=== PATIENT | female | born 1995 | race Two or more races ===

== ENCOUNTER 2020-03-14 20:28 | Emergency (ER) | payer MEDICAID ==
[~2020-03-14] VITALS: Ht 167.6 cm; Wt 102.1 kg
--- NOTE | 2020-03-14 20:51 | NUR ---
ED Nurse Note: Pt c/o swelling of left third finger x2 days. Reports pain is a 08/24. Pt is YANELIS x4. Addendum: 03/14/20 at 8 by ARSENIO ED Nurse Note: Pt has swelling, redness, and pain around the nail of third finger on left hand.
--- NOTE | 2020-03-14 21:23 | NUR ---
ED Nurse Note: Doctor in to see pt.
--- NOTE | 2020-03-14 21:27 | Emergency Room Report ---
History of Present Illness General Chief Complaint: Skin Rash/Abscess Source: Patient Present Illness HPI 25-year-old female here with right middle finger infection. Patient says that she bites her nails and over the past 2 days has been noticing swelling and pain at the tip of her right middle finger. Says it is swollen and "about to pop." Allergies: Coded Allergies: No Known Allergies (Unverified , 03/14/20) COVID-19 Screening Contact w/high risk pt: No Experienced COVID-19 symptoms?: No COVID-19 Testing performed SUPERVISOR PAPER TESTING: No COVID-19 Screening: Negative COVID-19 COVID-19 Testing Source: [facility] Patient History Now: No Nursing Documentation-[facility] Past Medical History: No Stated History Review of Systems All Other Systems: negative except mentioned in HPI Physical Exam Vital Signs Date Time Temp Pulse Resp B/P (MAP) Pulse Ox O2 Delivery O2 Flow Rate FiO2 03/14/20 20:43 98.4 85 20 134/85 (101) 98 Room Air Sp02 EP Interpretation: reviewed, normal General Appearance: no apparent distress, alert, non-toxic Head: normocephalic, atraumatic Eyes: bilateral eye normal inspection, bilateral eye PERRL ENT: hearing grossly normal, normal pharynx, no angioedema, normal voice Neck: full range of motion, supple/symm/no masses Respiratory: chest non-tender, lungs clear, normal breath sounds, speaking full sentences Cardiovascular #1: regular rate, rhythm, no edema Cardiovascular #2: 2+ carotid (R), 2+ carotid (L), 2+ radial (R), 2+ radial (L), 2+ dorsalis pedis (R), 2+ dorsalis pedis (L) Gastrointestinal: normal bowel sounds, non tender, soft, non-distended, no guarding, no rebound Rectal: deferred Genitourinary: normal inspection, no CVA tenderness Musculoskeletal: back normal, normal range of motion, gait/station normal, non-tender, other - Paronychia lateral aspect of the distal right middle finger Neurologic: alert, motor strength/tone normal, oriented x3, sensory intact, responsive, speech normal Psychiatric: judgement/insight normal, memory normal, mood/affect normal, no suicidal/homicidal ideation Lymphatic: no adenopathy Procedures Incision and Drainage Incision and Drainage : Consent: Verbal Site: Paronychia middle finger right hand Blade Size: 11 I & D Procedure: betadine prep Wound Location: other - Right middle finger Wound's Depth, Shape: superficial Anesthesia: 1% Lidocaine Splint Applied?: No Sling Applied?: No Patient Tolerated: Well Complications: None Medical Decision Making Diagnostic Impression: Primary Impression: Paronychia ER Course 25-year-old female here with right middle finger paronychia. Patient had incision and drainage performed as described above. Tolerated procedure well. Given prescription for doxycycline. Told to return with any worsening symptoms. Discharged in stable condition. Last Vital Signs Date Time Temp Pulse Resp B/P (MAP) Pulse Ox O2 Delivery O2 Flow Rate FiO2 03/14/20 20:43 98.4 85 20 134/85 (101) 98 Room Air Scripts Doxycycline Monohydrate* (DOXYCYCLINE MONOHYDRATE*) 100 Mg Capsule 100 MG ORAL Q12H, #14 CAP 0 Refills Prov: Les Neal M.D. 03/14/20 Les Neal M.D. Mar 14, 2020 21:27
[2020-03-14] MEDS ORDERED: DOXYCYCLINE MO100 MG ORAL (21:28)
[2020-03-14] MEDS ORDERED: Lidocaine 1% MPF 10mg/ml 5ml INJ ONE (21:30)
--- NOTE | 2020-03-14 21:58 | NUR ---
ED Nurse Note: I and D done by Dr. Neal. Gauze and tape applied to pt's finger. Pt tolerated procedure well.
[2020-03-14 22:04] VITALS: BP 120/65
== END 2020-03-14 22:00 | disposition home or self-care (01) ==
LOC: EMR 21:15
DX: L03.011 Cellulitis of right finger (principal)
CPT/HCPCS: 10060; Z7502; 99282

== ENCOUNTER 2020-04-18 20:02 | Emergency (ER) | payer MEDICAID ==
[~2020-04-18] VITALS: Ht 167.6 cm; Wt 108.9 kg
[~2020-04-18 20:02] MED LIST: DOXYCYCLINE MO100 MG ORAL
--- NOTE | 2020-04-18 22:27 | Emergency Room Report ---
History of Present Illness General Chief Complaint: Nausea Source: Patient Present Illness HPI The patient states that she is here for test. She states that she has had intermittent nausea, mood swings and headaches for about a week. She is mainly requesting a test. She states that she has not had a menses for the past 2 cycles. However, she admits that her menses is irregular. She did have an episode of diarrhea today but denies fever or chills. She denies cough or congestion. She denies chest pain or shortness of breath. She denies abdominal pain. She denies pelvic pain. She has no other complaints. Allergies: Coded Allergies: No Known Allergies (Unverified , 03/14/20) COVID-19 Screening Contact w/high risk pt: No Experienced COVID-19 symptoms?: No COVID-19 Testing performed VENDOR REPRESENTATIVES: No Patient History Past Medical History: none Past Surgical History: none Social History: Denies: smoking, alcohol use, drug use Last Menstrual Period: early february : 1 Para: 1 Reviewed Nursing Documentation: PMH: Agreed; PSxH: Agreed Nursing Documentation-PMH Past Medical History: No Stated History Review of Systems All Other Systems: negative except mentioned in HPI Physical Exam Vital Signs Date Time Temp Pulse Resp B/P (MAP) Pulse Ox O2 Delivery O2 Flow Rate FiO2 04/18/20 20:45 98.2 80 18 113/70 (84) 96 Room Air Sp02 EP Interpretation: reviewed, normal General Appearance: no apparent distress, alert, GCS 15, non-toxic Head: normocephalic, atraumatic Eyes: bilateral eye normal inspection ENT: hearing grossly normal, normal pharynx, no angioedema, normal voice Neck: normal inspection, full range of motion, supple/symm/no masses Respiratory: no respiratory distress, no retraction, no accessory muscle use, speaking full sentences Gastrointestinal: non tender, soft, non-distended, no guarding, no rebound Rectal: deferred Musculoskeletal: back normal, normal range of motion, gait/station normal, non- tender Neurologic: alert, motor strength/tone normal, oriented x3, sensory intact, responsive, speech normal Psychiatric: judgement/insight normal, memory normal, mood/affect normal, no suicidal/homicidal ideation Skin: no rash, normal color Medical Decision Making Diagnostic Impression: Primary Impression: Nausea/vomiting in ER Course The patient is requesting test for symptoms she associates with . Urinalysis and hCG were obtained which showed positive . The patient was instructed to start taking vitamins and to follow-up with her primary care physician or an OB to follow on with her . She is well-appearing and nontoxic with the symptoms normal for first trimester . There was some glucose in her urine so fingerstick blood sugar was obtained Laboratory Tests Test 04/18/20 21:30 Urine Color Yellow Urine Appearance Clear Urine pH 6 (4.5-8.0) Urine Specific [place] 1.025 (1.005-1.035) Urine Protein 1+ (NEGATIVE) H Urine Glucose (UA) 2+ (NEGATIVE) H Urine Ketones Negative (NEGATIVE) Urine Blood Negative (NEGATIVE) Urine Nitrite Negative (NEGATIVE) Urine Bilirubin Negative (NEGATIVE) Urine Urobilinogen Normal MG/DL (0.0-1.0) Urine Leukocyte Esterase 1+ (NEGATIVE) H Urine RBC Pending Urine WBC Pending Urine Squamous Epithelial Cells Pending Urine Bacteria Pending Urine HCG, Qualitative Positive (NEGATIVE) Last Vital Signs Date Time Temp Pulse Resp B/P (MAP) Pulse Ox O2 Delivery O2 Flow Rate FiO2 04/18/20 20:45 98.2 80 18 113/70 (84) 96 Room Air Referrals: NON PHYSICIAN (PCP) Renetta Sanz DO Apr 18, 2020 22:27
[2020-04-18 22:39] LABS: APPEARANCE,URINE CLEAR; BILIRUBIN, URINE NEGATIVE (NEGATIVE); GLUCOSE, URINE (UA) 2+ (NEGATIVE); KETONES,URINE NEGATIVE (NEGATIVE); LEUKOCYTE ESTERASE ,URINE 1+ (NEGATIVE); NITRITE,URINE NEGATIVE (NEGATIVE); PH,URINE 6 (4.5-8.0); PROTEIN,URINE 1+ (NEGATIVE); UROBILINOGEN,URINE NORMAL MG/DL (0.0-1.0)
[2020-04-18 22:43] LABS: COLOR,URINE YELLOW
[2020-04-18 23:19] VITALS: BP 113/70
== END 2020-04-18 23:05 | disposition home or self-care (01) ==
LOC: EMR 21:16
DX: O21.9 Vomiting of pregnancy, unspecified (principal); Z3A.00 Weeks of gestation of pregnancy not specified
CPT/HCPCS: 81003; 81025; 82962; 87086; Z7502; 99283